=== PATIENT | female | born 1995 | race Hispanic/Latino ===

== ENCOUNTER 2016-09-27 19:51 | Observation (INO) | payer BC ==
[2016-09-27 19:58] VITALS: BP 118/56; PULSE 61; RESP 16; TEMP 97.9; O2SAT 98
--- NOTE | 2016-09-27 20:30 | ED PDOC ---
HPI: Psych/Substance Abuse Time Seen by Provider: 09/27/16 20:04 Chief Complaint (Nursing): Alcohol Ingestion Chief Complaint (Provider): Alcohol Ingestion ED Caveat: Intoxicated History Per: EMS History/Exam Limitations: intoxication Onset/Duration Of Symptoms: Unknown Current Symptoms Are (Timing): Still Present Modifying Factor(s): Alcohol Additional Complaint(s): Hanna Rodriguez is a 21 year old female, with an unknown past medical history, who presents to the ED on 09/27/16, via EMS, for the evaluation of acute alcohol intoxication of unknown duration. HPI and ROS are limited secondary to the patient's intoxicated condition. Upon initial evaluation, patient is sleeping deeply in bed, arousable to loud voice. PMD: unknown Past Medical History Reviewed: Historical Data, Nursing Documentation, Vital Signs, Unable To Obtain Vital Signs: Last Vital Signs Temp 97.9 F 09/27/16 19:56 Pulse 61 09/27/16 19:56 Resp 16 09/27/16 19:56 BP 118/56 L 09/27/16 19:56 Pulse Ox 98 09/27/16 19:56 - Family History Family History: States: Unknown Family Hx - Social History Alcohol: Other (yes) - Home Medications Home Medications: Ambulatory Orders Medication Instructions Recorded Unobtainable 03/12/16 - Allergies Allergies/Adverse Reactions: Allergies Allergy/AdvReac Type Severity Reaction Status Date / Time No Known Allergies Allergy Verified 09/27/16 19:55 Review of Systems Review Of Systems: ROS cannot be obtained secondary to pt's inabilty to answer questions. Psych: Positive for: Other (acute alcohol intoxication of unknown duration) Physical Exam - Reviewed Nursing Documentation Reviewed: Yes Vital Signs Reviewed: Yes - Physical Exam Appears: Positive for: Non-toxic, No Acute Distress Head Exam: Positive for: ATRAUMATIC, NORMOCEPHALIC Skin: Positive for: Normal Color, Warm, Dry Eye Exam: Positive for: Normal appearance, PERRL ENT: Positive for: Normal ENT Inspection Neck: Positive for: Normal, Supple Cardiovascular/Chest: Positive for: Regular Rate, Rhythm. Negative for: Murmur Respiratory: Positive for: Normal Breath Sounds. Negative for: Respiratory Distress Gastrointestinal/Abdominal: Positive for: Normal Exam, Soft. Negative for: Tenderness Back: Positive for: Normal Inspection Extremity: Positive for: Normal ROM (moving all extremities). Negative for: Deformity (no evidence of acute injury/trauma) Neurologic/Psych: Positive for: Alert (sleeping deeply but arousable to loud voice). Negative for: Oriented - ECG O2 Sat by Pulse Oximetry: 98 (RA) Pulse Ox Interpretation: Normal Medical Decision Making Medical Decision Makin:04 Initial Impression: acute alcohol intoxication Initial Plan: * Alcohol Serum * Glucose/Blood/POC * Reevaluation 20:56 Patient unsuccessfully attempted to elope from ED, will place on 1:1 observation. 21:00 Serum alcohol level is 293, accucheck is 112. Patient will be placed within ED Observation secondary to her acutely intoxicated state. Pending clinical sobriety, reevaluation and eventual disposition. See Obs note for further updates. 12am Pt stable. Endorsed to Dr Garduno. Pending sobriety. Scribe Attestation: Documented by Yasmeen Garcia, acting as a scribe for Bri Gupta MD. Provider Scribe Attestation: All medical record entries made by the Scribe were at my direction and personally dictated by me. I have reviewed the chart and agree that the record accurately reflects my personal performance of the history, physical exam, medical decision making, and the department course for this patient. I have also personally directed, reviewed, and agree with the discharge instructions and disposition. ED OBSERVATION Date of observation admission: 09/27/16 Time of observation admission: 21:00 - Observation admission statement Patient is being placed in observation because:: Acute alcohol intoxication. - Goals of Observation Goals of observation are:: Pending clinical sobriety, reevaluation and eventual disposition. Disposition - Clinical Impression Clinical Impression: Acute alcohol intoxication - Disposition Disposition Time: 21:00 Condition: STABLE
--- NOTE | 2016-09-28 00:27 | ED PDOC ---
- ECG O2 Sat by Pulse Oximetry: 98 (RA) Pulse Ox Interpretation: Normal Medical Decision Making Medical Decision Making: Receiving Sign Out: Patient signed out to me by Dr. Gupta, pending clinical sobriety. Scribe Attestation: Documented by Giselle Mello acting as a scribe for Fortunato Garduno MD. Provider Attestation: All medical record entries made by the Scribe were at my direction and personally dictated by me. I have reviewed the chart and agree that the record accurately reflects my personal performance of the history, physical exam, medical decision making, and the department course for this patient. I have also personally directed, reviewed, and agree with the discharge instructions and disposition. Disposition Doctor Will See Patient In The: Office Counseled Patient/Family Regarding: Studies Performed, Diagnosis, Need For Followup - Clinical Impression Clinical Impression: Acute alcohol intoxication - POA Present On Arrival: None - Disposition Disposition: Routine/Home Disposition Time: 02:10 Condition: STABLE Progress Note - Review of Symptoms Events since last encounter: Time: 021 Pt is alert and awake with steady gait and normal speech. Stable for discharge home.
== END 2016-09-28 02:42 | disposition home or self-care (01) ==
LOC: H.ER 19:51 → H.EROBSV 21:00
PROVIDERS: ADMIT Emergency Medicine; ATTEND Emergency Medicine
DX: F10.129 Alcohol abuse with intoxication, unspecified (principal); Y90.8 Blood alcohol level of 240 mg/100 ml or more
CPT/HCPCS: 81025; 82948; 84702; 99283; G0378; G0480